=== PATIENT | female | born 1970 | race African-American/Black ===

== ENCOUNTER 2018-09-16 09:03 | Emergency (ER) | payer SELFPAY ==
[~2018-09-16] VITALS: Ht 172.7 cm; Wt 81.6 kg
[2018-09-16 09:16] VITALS: BP 136/74
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
--- NOTE | 2018-09-16 09:59 | RAD ---
3 view study of the right hand Clinical indications: Right hand injury and pain. FINDINGS: No acute fracture or dislocation or lytic process is evident. 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 Dorsal soft tissue swelling is evident. No radiopaque foreign body is evident. IMPRESSION: No acute fracture. Electronically signed by: Dariusz Kessler MD (09/16/2018 9:56 AM) [facility]
== END 2018-09-16 10:45 | disposition home or self-care (01) ==
LOC: ER 09:03
DX: S69.81XA Other specified injuries of right wrist, hand and finger(s), initial encounter (principal); Y04.0XXA Assault by unarmed brawl or fight, initial encounter; Y93.89 Activity, other specified; Y92.89 Other specified places as the place of occurrence of the external cause; Y99.8 Other external cause status
CPT/HCPCS: 29125; 73130; 99284